=== PATIENT | female | born 1970 | race Caucasian/White ===

== ENCOUNTER 2023-03-05 08:15 | Outpatient (CLI) | payer BC ==
--- NOTE | 2023-03-05 15:20 | DEXA Report ---
PROCEDURE: Dexa Spine and/or Hip INDICATIONS: OSTEOPENIA TECHNIQUE: Dual energy x-ray absorptiometry (DXA) was performed on a [email or web address] System. Regions measur ed are the AP Spine, femoral neck, and if needed forearm. COMPARISON: None FINDINGS: Lumbar Spine: Bone Mineral Density 1.285 g/cm/cm,T score 0.9. Left Femoral Neck: Bone Mineral Density 1.020 g/cm/cm, T score -1.0. Left Hip: Bone Mineral Density 0.999 g/cm/cm,T score -0.1. (T score greater or equal to -1.0: NORMAL) (T score from -1.1 to -2.4: OSTEOPENIA) (T score less than or equal to -2.5 to: OSTEOPOROSIS) Impression: By WHO criteria, this patient has normal bone density. Patients with diagnosis of osteoporosis or osteopenia should have regular bone mineral density assess ment. For those eligible for Medicare, routine testing is allowed once every 2 years. Testing frequ ency can be increased for patients who have rapidly progressing disease or for those who are receivin g medical therapy to restore bone mass. Reviewed by: Chey Briceno MD on 03/05/2023 3:18 PM PST Approved by: Chey Briceno MD on 03/05/2023 3:18 PM PST Station ID: [id number]
== END 2023-03-05 08:16 | disposition home or self-care (01) ==
LOC: DI 08:15
PROVIDERS: ATTEND Physician Assistant Medical
DX: M85.80 Other specified disorders of bone density and structure, unspecified site (principal)